=== PATIENT | male | born 1995 | race African-American/Black ===

== ENCOUNTER 2017-10-30 08:43 | Emergency (ER) | payer BC ==
[~2017-10-30] VITALS: Ht 167.6 cm; Wt 68.0 kg
[~2017-10-30 08:43] MED LIST: BACTRIM DS TAB1 EACH PO; DOXYCYCLINE 10100 MG PO; EUCERIN CREME120 GM TP; EUCERIN ECZEMA226 GM TP; FLAGYL500 MG PO; IBUPROFEN 600600 M1 PO; KEFLEX500 MG PO; MEDROLDOSEPACK PO; NOHOMEMEDICATIONS; ZOFRAN ODT4 MG PO
[2017-10-30] MEDS ORDERED: NORCO 5-325 TA1 EACH PO (09:16)
== END 2017-10-30 09:37 | disposition home or self-care (01) ==
LOC: ER 08:43
DX: S90.32XA Contusion of left foot, initial encounter (principal); W20.8XXA Other cause of strike by thrown, projected or falling object, initial encounter; Y93.89 Activity, other specified; Y92.89 Other specified places as the place of occurrence of the external cause; Y99.8 Other external cause status